=== PATIENT | female | born 1995 | race Caucasian/White ===

== ENCOUNTER 2017-04-22 23:39 | Emergency (ER) | payer BC ==
[~2017-04-22] VITALS: Ht 162.6 cm; Wt 95.3 kg
[~2017-04-22 23:39] MED LIST: FERROUS SULFAT325 M1 PO; MACROBID 100MG100 MG PO; MOTRIN400 MG PO; PERCOCET 5/3251 EACH PO; PRENATAL PLUS1 TA1 PO
[2017-04-23] MEDS ORDERED: NOMEDS XX (00:02)
--- OUTSIDE RECORDS SUMMARY | 2017-04-23 00:06 | External Medical Summary Rpt ---
Author Author , LUCA Padilla LUCA Address Unknown Phone [email or web address] Care Team Providers Care Store Clerk Checker Name Role Phone [facility], Unavailable Unavailable [facility] # Unavailable Unavailable [id number], [facility] # [id number] Purpose Continuity of Care Document - 04-01-2010 through 2016 Medications Na ND Rx Da Fi Fi Am Da Di Ph RX Ph St me C No te ll ll ou ys ag ar # ys at rm s nt no ma ic us Or Da si cy ia de te s n re d 00 06 10 11 28 28 WA 70 CL Ac 43 -2 -2 .0 L- 83 AR ti 00 7- 4- 00 MA 67 KE ve 53 20 20 RT 6 01 11 11 DE 4 PH RE AR K MA J CY # 10 04 93 00 06 09 11 28 28 WA 70 CL Ac 43 -2 -2 .0 L- 83 AR ti 00 7- 7- 00 MA 67 KE ve 53 20 20 RT 6 01 11 11 DE 4 PH RE AR K MA J CY # 10 04 93 AM 66 08 08 0 20 10 SO 38 TA Ac OX 68 -2 -2 .0 PE 21 MA ti -C 51 3- 3- 00 RS 29 RE ve LA 00 20 20 N V 10 11 11 FA JA 87 1 SC NE 5- LY T [address] MG UG TA BL ET 00 06 08 11 28 28 WA 70 CL Ac 43 -2 -2 .0 L- 83 AR ti 00 7- 2- 00 MA 67 KE ve 53 20 20 RT 6 01 11 11 DE 4 PH RE AR K MA J CY # 10 04 93 00 06 07 11 28 28 WA 70 CL Ac 43 -2 -2 .0 L- 83 AR ti 00 7- 7- 00 MA 67 KE ve 53 20 20 RT 6 01 11 11 DE 4 PH RE AR K MA J CY # 10 04 93 00 06 06 11 28 28 WA 70 CL Ac 43 -2 -2 .0 L- 83 AR ti 00 7- 7- 00 MA 67 KE ve 53 20 20 RT 6 01 11 11 DE 4 PH RE AR K MA J CY # 10 04 93 NI 00 05 05 0 14 7 SO 37 TA Ac TR 18 -1 -1 .0 PE 38 MA ti OF 50 8- 8- 00 RS 65 RE ve UR 12 20 20 N AN 21 11 11 FA JA TO 0 SC NE IN LY T MO DR NO UG -M CR 10 0 MG NA 68 05 05 1 60 30 SO 37 TA Ac MT 46 -1 -1 .0 PE 38 MA ti OX 20 8- 8- 00 RS 67 RE ve EN 19 20 20 N 00 11 11 FA JA 50 5 SC NE [address] TA UG BL ET 00 11 11 0 90 5 SO 35 TA Ac 12 -0 -0 0. PE 64 MA ti 10 3- 3- 00 RS 68 RE ve 65 20 20 0 N 51 10 10 FA JA 6 SC NE LY T DR UG LI 50 11 11 1 10 7 SO 35 TA Ac DO 38 -0 -0 0. PE 64 MA ti CA 30 3- 3- 00 RS 67 RE ve IN 77 20 20 0 N E 50 10 10 FA JA 2% 4 SC NE LY T SC DR OU UG S SO LN AM 00 11 11 0 30 10 SO 35 TA Ac OX 14 -0 -0 0. PE 64 MA ti IC 39 3- 3- 00 RS 66 RE ve IL 88 20 20 0 N LI 70 10 10 FA JA N 1 SC NE 40 LY T [address] /5 UG ML MONTANEZ SP MT 50 09 09 0 60 12 SO 35 TA Ac OM 38 -2 -2 .0 PE 24 MA ti ET 30 0- 0- 00 RS 40 RE ve GARCIA 80 20 20 N ZI 41 10 10 FA JA NE 6 SC NE -C LY T OD EI DR NE UG SY RU P AZ 00 09 09 0 6. 5 SO 35 TA Ac IT 78 -2 -2 00 PE 24 MA ti HR 11 0- 0- 0 RS 41 RE ve OM 49 20 20 N YC 66 10 10 FA JA IN 8 SC NE LY T [address] MG UG TA BL ET AM 00 09 09 0 20 10 SO 35 TA Ac OX 78 -1 -1 .0 PE 21 MA ti IC 15 6- 6- 00 RS 88 RE ve IL 06 20 20 N LI 10 10 10 FA JA N 1 SC NE 87 LY T [address] UG TA BL ET 00 07 07 0 12 5 SO 34 TA Ac 00 -0 -0 0. PE 65 MA ti 00 RS 42 RE ve 00 20 20 0 N 00 10 10 FA JA 0 SC NE LY T DR MORALES CE 68 07 07 0 10 5 SO 34 TA Ac PH 18 -0 -0 .0 PE 65 MA ti AL RS 43 RE ve EX 12 20 20 N IN 20 10 10 FA JA 2 SC NE [address] LY T [address] MORALES CA PS UL E
--- OUTSIDE RECORDS SUMMARY | 2017-04-23 00:06 | External Medical Summary Rpt ---
Author Author , LUCA Padilla LUCA Address Unknown Phone [email or web address] Care Team Providers Care Flat Spring Assembler Name Role Phone [facility], Unavailable Unavailable [facility] # Unavailable Unavailable [id number], [facility] # [id number] Purpose Continuity of Care Document - 04-01-2010 [...] 10 11 11 FA JA 87 1 GA NE 5- LY T [address] [...] 21 11 11 FA JA TO 0 GA NE IN LY T MO DR NO UG -M CR 10 0 MG NA 68 05 05 1 60 30 SO 37 TA Ac ID 46 -1 -1 .0 PE 38 MA ti OX 20 8- 8- 00 RS 67 RE ve EN 19 20 20 N 00 11 11 FA JA 50 5 GA NE [address] TA UG BL ET 00 11 11 0 90 5 SO 35 TA Ac 12 -0 -0 0. PE 64 MA ti 10 3- 3- 00 RS 68 RE ve 65 20 20 0 N 51 10 10 FA JA 6 GA NE LY T DR UG LI 50 11 11 1 10 7 SO 35 TA Ac DO 38 -0 -0 0. PE 64 MA ti CA 30 3- 3- 00 RS 67 RE ve IN 77 20 20 0 N E 50 10 10 FA JA 2% 4 GA NE LY T SC DR OU UG S SO LN AM 00 11 11 0 30 10 SO 35 TA Ac OX 14 -0 -0 0. PE 64 MA ti IC 39 3- 3- 00 RS 66 RE ve IL 88 20 20 0 N LI 70 10 10 FA JA N 1 GA NE 40 LY T [address] /5 UG ML MONTANEZ SP ID 50 09 09 0 60 12 SO 35 TA Ac OM 38 -2 -2 .0 PE 24 MA ti ET 30 0- 0- 00 RS 40 RE ve GARCIA 80 20 20 N ZI 41 10 10 FA JA NE 6 GA NE -C LY T OD EI DR NE UG SY RU P AZ 00 09 09 0 6. 5 SO 35 TA Ac IT 78 -2 -2 00 PE 24 MA ti HR 11 0- 0- 0 RS 41 RE ve OM 49 20 20 N YC 66 10 10 FA JA IN 8 GA NE LY T [address] MG UG TA BL ET AM 00 09 09 0 20 10 SO 35 TA Ac OX 78 -1 -1 .0 PE 21 MA ti IC 15 6- 6- 00 RS 88 RE ve IL 06 20 20 N LI 10 10 10 FA JA N 1 GA NE 87 LY T [address] UG TA BL ET 00 07 07 0 12 5 SO 34 TA Ac 00 -0 -0 0. PE 65 MA ti 00 RS 42 RE ve 00 20 20 0 N 00 10 10 FA JA 0 GA NE LY T DR MORALES CE 68 07 07 0 10 5 SO 34 TA Ac PH 18 -0 -0 .0 PE 65 MA ti AL RS 43 RE ve EX 12 20 20 N IN 20 10 10 FA JA 2 GA NE [address] LY T [address] MORALES CA PS UL E
--- OUTSIDE RECORDS SUMMARY | 2017-04-23 00:06 | External Medical Summary Rpt ---
Demographics Preferred Language Hong Konger Marital Status Unknown Yazidi Affiliation Unknown Race Unknown Ethnic Group Unknown Author Author , LUCA SEGOVIA Address Unknown Phone [email or web address] Care Team Providers Care Wind Project Manager Name Role Phone [facility], Unavailable Unavailable [facility] # Unavailable Unavailable [id number], [facility] # [id number] Purpose Continuity of Care Document - 04-01-2010 [...] 10 11 11 FA JA 87 1 MO NE 5- LY T [address] [...] 21 11 11 FA JA TO 0 MO NE IN LY T MO DR NO UG -M CR 10 0 MG NA 68 05 05 1 60 30 SO 37 TA Ac SD 46 -1 -1 .0 PE 38 MA ti OX 20 8- 8- 00 RS 67 RE ve EN 19 20 20 N 00 11 11 FA JA 50 5 MO NE [address] TA UG BL ET AM 00 11 11 0 30 10 SO 35 TA Ac OX 14 -0 -0 0. PE 64 MA ti IC 39 3- 3- 00 RS 66 RE ve IL 88 20 20 0 N LI 70 10 10 FA JA N 1 MO NE 40 LY T [address] /5 UG ML MONTANEZ SP LI 50 11 11 1 10 7 SO 35 TA Ac DO 38 -0 -0 0. PE 64 MA ti CA 30 3- 3- 00 RS 67 RE ve IN 77 20 20 0 N E 50 10 10 FA JA 2% 4 MO NE LY T SC DR OU UG S SO LN 00 11 11 0 90 5 SO 35 TA Ac 12 -0 -0 0. PE 64 MA ti 10 3- 3- 00 RS 68 RE ve 65 20 20 0 N 51 10 10 FA JA 6 MO NE LY T DR UG SD 50 09 09 0 60 12 SO 35 TA Ac OM 38 -2 -2 .0 PE 24 MA ti ET 30 0- 0- 00 RS 40 RE ve GARCIA 80 20 20 N ZI 41 10 10 FA JA NE 6 MO NE -C LY T OD EI DR NE UG SY RU P AZ 00 09 09 0 6. 5 SO 35 TA Ac IT 78 -2 -2 00 PE 24 MA ti HR 11 0- 0- 0 RS 41 RE ve OM 49 20 20 N YC 66 10 10 FA JA IN 8 MO NE LY T [address] MG UG TA BL ET AM 00 09 09 0 20 10 SO 35 TA Ac OX 78 -1 -1 .0 PE 21 MA ti IC 15 6- 6- 00 RS 88 RE ve IL 06 20 20 N LI 10 10 10 FA JA N 1 MO NE 87 LY T [address] UG TA BL ET 00 07 07 0 12 5 SO 34 TA Ac 00 -0 -0 0. PE 65 MA ti 00 7- 7- 00 RS 42 RE ve 00 20 20 0 N 00 10 10 FA JA 0 MO NE LY T DR CARMEN CE 68 07 07 0 10 5 SO 34 TA Ac PH 18 -0 -0 .0 PE 65 MA ti AL 00 RS 43 RE ve EX 12 20 20 N IN 20 10 10 FA JA 2 MO NE 50 LY T [address] MORALES CA PS UL E
--- OUTSIDE RECORDS SUMMARY | 2017-04-23 00:06 | External Medical Summary Rpt ---
Demographics Preferred Language Monegasque Marital Status Unknown Mu-Ism Affiliation Unknown Race Unknown Ethnic Group Unknown Author Author , LUCA SEGOVIA Address Unknown Phone Care Team Providers Care Product Safety Engineer Name Role Phone [facility], Unavailable Unavailable [facility] # Unavailable Unavailable [id number], [facility] # [id number] Purpose Continuity of Care Document - 04-01-2010 [...] 10 11 11 FA JA 87 1 KS NE 5- LY T [address] [...] 21 11 11 FA JA TO 0 KS NE IN LY T MO DR NO UG -M CR 10 0 MG NA 68 05 05 1 60 30 SO 37 TA Ac NM 46 -1 -1 .0 PE 38 MA ti OX 20 8- 8- 00 RS 67 RE ve EN 19 20 20 N 00 11 11 FA JA 50 5 KS NE [address] TA UG BL ET AM 00 11 11 0 30 10 SO 35 TA Ac OX 14 -0 -0 0. PE 64 MA ti IC 39 3- 3- 00 RS 66 RE ve IL 88 20 20 0 N LI 70 10 10 FA JA N 1 KS NE 40 LY T [address] /5 UG ML MONTANEZ SP LI 50 11 11 1 10 7 SO 35 TA Ac DO 38 -0 -0 0. PE 64 MA ti CA 30 3- 3- 00 RS 67 RE ve IN 77 20 20 0 N E 50 10 10 FA JA 2% 4 KS NE LY T SC DR OU UG S SO LN 00 11 11 0 90 5 SO 35 TA Ac 12 -0 -0 0. PE 64 MA ti 10 3- 3- 00 RS 68 RE ve 65 20 20 0 N 51 10 10 FA JA 6 KS NE LY T DR UG NM 50 09 09 0 60 12 SO 35 TA Ac OM 38 -2 -2 .0 PE 24 MA ti ET 30 0- 0- 00 RS 40 RE ve GARCIA 80 20 20 N ZI 41 10 10 FA JA NE 6 KS NE -C LY T OD EI DR NE UG SY RU P AZ 00 09 09 0 6. 5 SO 35 TA Ac IT 78 -2 -2 00 PE 24 MA ti HR 11 0- 0- 0 RS 41 RE ve OM 49 20 20 N YC 66 10 10 FA JA IN 8 KS NE LY T [address] MG UG TA BL ET AM 00 09 09 0 20 10 SO 35 TA Ac OX 78 -1 -1 .0 PE 21 MA ti IC 15 6- 6- 00 RS 88 RE ve IL 06 20 20 N LI 10 10 10 FA JA N 1 KS NE 87 LY T [address] UG TA BL ET 00 07 07 0 12 5 SO 34 TA Ac 00 -0 -0 0. PE 65 MA ti 00 7- 7- 00 RS 42 RE ve 00 20 20 0 N 00 10 10 FA JA 0 KS NE LY T DR CARMEN CE 68 07 07 0 10 5 SO 34 TA Ac PH 18 -0 -0 .0 PE 65 MA ti AL 00 RS 43 RE ve EX 12 20 20 N IN 20 10 10 FA JA 2 KS NE [address] LY T [address] MORALES CA PS UL E
--- OUTSIDE RECORDS SUMMARY | 2017-04-23 00:07 | External Medical Summary Rpt ---
Author Author LUCA Soto, [employer] Address Unknown Phone Unavailable
--- OUTSIDE RECORDS SUMMARY | 2017-04-23 00:07 | External Medical Summary Rpt ---
Demographics Preferred Language Swedish Marital Status Unknown Rastafari Affiliation Unknown Race Unknown Ethnic Group Unknown Author Author , LUCA SEGOVIA Address Unknown Phone Immunization Unable to retrieve immunization data due to connection failure with Immunization Registry. Please try again later.
--- OUTSIDE RECORDS SUMMARY | 2017-04-23 00:07 | External Medical Summary Rpt ---
Demographics Preferred Language Maltese Marital Status Unknown Episcopalian Affiliation Unknown Race Unknown Ethnic Group Unknown Author Author , LUCA SEGOVIA Address Unknown Phone Immunization Unable to retrieve immunization data due to connection failure with Immunization Registry. Please try again later.
--- NOTE | 2017-04-23 00:26 | Emergency Room Report ---
History of Present Illness Time Seen by MD Christianson Presenting Problem in Triage Pt arrived:Walked Presenting Problem:took a mis-step when walking down porch steps, right ankle popped 3 times and "gave out" causing patient to fall from a height of 1 porch step. 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 N Clinical Suspician of Infection? N Mental Status: 1 - Regular (Normal Baseline) Sepsis Risk:Low Sepsis Risk Have you (or family members/close friends) recently traveled outside the [place]? N If Yes, where/when: Have you had exposure to infectious disease within the past month? N TB? Other? Specify: Source patient, RN notes reviewed, family, old records Exam Limitations no limitations Comment pt with acute rt ankle injury tonight - pt with sts and pain with wt bearing Cardiac Chest Pain Chest pain indicative of cardiac No Timing/Duration this evening Severity moderate ALLERGIES Coded Allergies: No Known Drug Allergies (NKDA) (04/23/17) Home Medications Active Scripts Ferrous Sulfate (Ferrous Sulfate 325MG) 325 MG PO BID #60 Prov: 10/06/12 Ibuprofen (Motrin) 400 MG PO Q4HP #40 TAB Prov: 10/06/12 Oxycodone 5MG/[id number] (Oxycodone-Acetaminophen 5-325) 1-2 TAB PO Q4HP #30 TAB Prov: 10/06/12 Reported Medications No Home Medications (NO HOME MEDICATIONS) 1 EACH XX ONCE MULTIVIT-MIN W/FE-FA ( Multivitamin Tablet) 1 TAB PO DAILY History Medical History General Angina: No DE: No Hypertension? Yes Hyperlipidemia? No CHF? No COPD? No Asthma? No CVA? No Seizures? No Diabetes? No End Stage Renal Disease? No GB Disease: No Nephritic Syndrome? No Asplenia? No Sickle Cell Disease? No MRSA? No TB? No Cancer? 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 Respiratory denies cough, denies shortness of breath, denies wheezing Cardiovascular denies chest pain, denies palpitations, denies syncope Gastrointestinal denies abdominal pain, denies diarrhea, denies vomiting Genitourinary denies: dysuria, frequency, hesitancy, hematuria. Musculoskeletal see HPI, denies back pain, joint pain, joint swelling, denies neck pain Skin denies rash Psychiatric/Neurological denies headache, denies seizure Physical Exam Vital Signs Vital Signs Date Time Temp Pulse Resp B/P Pulse O2 O2 Flow FiO2 Ox Delivery Rate 04/22 2350 98.4 75 16 143/85 100 - WBC >12,000 or <4,000 or 10% bands? 2 or more SIRS Criteria Met? B/P:143/85 MAP:104 Creatinine >2.0? UA output<0.5ml/kg/hr for 2 hrs? Platelet count >100,000? Lactate >2.0mmol/1? INR >1.2 or PTT > than 60 sec? Evidence of Organ Dysfunction? Provider documented clinical suspician of infection? N Sepsis Criteria Count: 0 Sepsis Risk: Low Sepsis Risk General Appearance no apparent distress Eye Exam - bilateral eye PERRL, bilateral eye EOMI Ear, Nose, Throat normal ENT inspection Neck supple Respiratory Status No: respiratory distress. Cardiovascular regular rate/rhythm Peripheral Pulses Pulses normal Yes Gastrointestinal soft Extremities no pedal edema, swelling, tender rt ankle with achilles ok , calcaneous ok Strength 4 Upper Ext (L), 4 Upper Ext (R), 4 Lower Ext (L), 4 Lower Ext (R) Neurologic alert, pricing manager II-XII nml as tested, no motor/sensory deficits Reflexes Reflexes normal No Mental status normal mood/affect Skin intact Medical Decision Making LABS/Meds/Orders Pt receiving controlled substance in ED? No Results/Orders Current Medication Orders Sig/Arielle Start time Last Medication Dose Route Stop Time Status Admin Ibuprofen 0 .STK-MED ONE 04/23 0005 DC PO Ibuprofen 600 MG ONCE ONE 04/22 2345 DC 04/23 PO 04/22 2346 0007 Orders Procedure Date/time Status ANKLE-RT-3 VIEWS 04/23 6013 Active XRAY/CT/US XRAY/CT/US XRAY ankle XR interpretation by reviewed by me Xray Results abnormal (talar injury) Procedures Orthopedic/Inj/Splint Ortho Proc/Injections/Splints Risks/benefits discussed with pt/guardian? Yes IV conscious sedation No Post reduction xrays completed and anatomic No Hand-Made Type orthoglass Splint posterior walking Pre-Proc Neuro Vasc Exam normal Post-Proc Neuro Vasc Exam unchanged from pre-exam Complications none Departure Departure Time of Disposition 0056 Disposition DC Home or Self Care(routine) Clinical Impression Primary Impression: Talar dome fracture Qualifiers: Encounter type: initial encounter Fracture type: closed Fracture alignment: nondisplaced Laterality: right Qualified Code: S92.144A - Nondisplaced dome fracture of right talus, initial encounter for closed fracture Condition STABLE Referrals SAMMI PEACOCK DPM Patient Instructions DI for Talus Fracture Additional Instructions limited wt bearing and see podiatry for follow up Discharge Counseling Counseled pt/family regarding diagnosis, test results, medications/RX, follow up needs ED Critical Care Critical Care No at 0105
--- NOTE | 2017-04-23 00:26 | Emergency Room Report ---
History of Present Illness Time Seen by MD Christianson Presenting Problem in Triage Pt arrived:Walked Presenting Problem:took a mis-step when walking down porch steps, right ankle popped 3 times and "gave out" causing patient to fall from a height of 1 porch step. 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 N Clinical Suspician of Infection? N Mental Status: 1 - Regular (Normal Baseline) Sepsis Risk:Low Sepsis Risk Have you (or family members/close friends) recently traveled outside the [place]? N If Yes, where/when: Have you had exposure to infectious disease within the past month? N TB? Other? Specify: Source patient, RN notes reviewed, family, old records Exam Limitations no limitations Comment pt with acute rt ankle injury tonight - pt with sts and pain with wt bearing Cardiac Chest Pain Chest pain indicative of cardiac No Timing/Duration this evening Severity moderate ALLERGIES Coded Allergies: No Known Drug Allergies (NKDA) (04/23/17) Home Medications Active Scripts Ferrous Sulfate (Ferrous Sulfate 325MG) 325 MG PO BID #60 Prov: 10/06/12 Ibuprofen (Motrin) 400 MG PO Q4HP #40 TAB Prov: 10/06/12 Oxycodone 5MG/[id number] (Oxycodone-Acetaminophen 5-325) 1-2 TAB PO Q4HP #30 TAB Prov: 10/06/12 Reported Medications No Home Medications (NO HOME MEDICATIONS) 1 EACH XX ONCE MULTIVIT-MIN W/FE-FA ( Multivitamin Tablet) 1 TAB PO DAILY History Medical History General Angina: No SC: No Hypertension? Yes Hyperlipidemia? No CHF? No COPD? No Asthma? No CVA? No Seizures? No Diabetes? No End Stage Renal Disease? No GB Disease: No Nephritic Syndrome? No Asplenia? No Sickle Cell Disease? No MRSA? No TB? No Cancer? 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 Respiratory denies cough, denies shortness of breath, denies wheezing Cardiovascular denies chest pain, denies palpitations, denies syncope Gastrointestinal denies abdominal pain, denies diarrhea, denies vomiting Genitourinary denies: dysuria, frequency, hesitancy, hematuria. Musculoskeletal see HPI, denies back pain, joint pain, joint swelling, denies neck pain Skin denies rash Psychiatric/Neurological denies headache, denies seizure Physical Exam Vital Signs Vital Signs Date Time Temp Pulse Resp B/P Pulse O2 O2 Flow FiO2 Ox Delivery Rate 04/22 2350 98.4 75 16 143/85 100 - WBC >12,000 or <4,000 or 10% bands? 2 or more SIRS Criteria Met? B/P:143/85 MAP:104 Creatinine >2.0? UA output<0.5ml/kg/hr for 2 hrs? Platelet count >100,000? Lactate >2.0mmol/1? INR >1.2 or PTT > than 60 sec? Evidence of Organ Dysfunction? Provider documented clinical suspician of infection? N Sepsis Criteria Count: 0 Sepsis Risk: Low Sepsis Risk General Appearance no apparent distress Eye Exam - bilateral eye PERRL, bilateral eye EOMI Ear, Nose, Throat normal ENT inspection Neck supple Respiratory Status No: respiratory distress. Cardiovascular regular rate/rhythm Peripheral Pulses Pulses normal Yes Gastrointestinal soft Extremities no pedal edema, swelling, tender rt ankle with achilles ok , calcaneous ok Strength 4 Upper Ext (L), 4 Upper Ext (R), 4 Lower Ext (L), 4 Lower Ext (R) Neurologic alert, donor services coordinator II-XII nml as tested, no motor/sensory deficits Reflexes Reflexes normal No Mental status normal mood/affect Skin intact Medical Decision Making LABS/Meds/Orders Pt receiving controlled substance in ED? No Results/Orders Current Medication Orders Sig/Arielle Start time Last Medication Dose Route Stop Time Status Admin Ibuprofen 0 .STK-MED ONE 04/23 0005 DC PO Ibuprofen 600 MG ONCE ONE 04/22 2345 DC 04/23 PO 04/22 2346 0007 Orders Procedure Date/time Status ANKLE-RT-3 VIEWS 04/23 8695 Active XRAY/CT/US XRAY/CT/US XRAY ankle XR interpretation by reviewed by me Xray Results abnormal (talar injury) Procedures Orthopedic/Inj/Splint Ortho Proc/Injections/Splints Risks/benefits discussed with pt/guardian? Yes IV conscious sedation No Post reduction xrays completed and anatomic No Hand-Made Type orthoglass Splint posterior walking Pre-Proc Neuro Vasc Exam normal Post-Proc Neuro Vasc Exam unchanged from pre-exam Complications none Departure Departure Time of Disposition 0056 Disposition DC Home or Self Care(routine) Clinical Impression Primary Impression: Talar dome fracture Qualifiers: Encounter type: initial encounter Fracture type: closed Fracture alignment: nondisplaced Laterality: right Qualified Code: S92.144A - Nondisplaced dome fracture of right talus, initial encounter for closed fracture Condition STABLE Referrals SAMMI PEACOCK DPM Patient Instructions DI for Talus Fracture Additional Instructions limited wt bearing and see podiatry for follow up Discharge Counseling Counseled pt/family regarding diagnosis, test results, medications/RX, follow up needs ED Critical Care Critical Care No at 0105
[2017-04-23 01:13] VITALS: BP 124/84
--- NOTE | 2017-04-23 08:02 | RADIOLOGY REPORT PS360 ---
ANKLE-RT-3 VIEWS COMPARISON: None HISTORY: Right ankle pain after falling down steps TECHNIQUE: AP lateral and oblique views FINDINGS: There is mild diffuse soft tissue swelling both medially and laterally. The medial and lateral malleolus appear intact iliac mortise is normal. There is a small spur of the calcaneus at insertion of plantar tendon. IMPRESSION: Negative for fracture
== END 2017-04-23 01:21 | disposition home or self-care (01) ==
LOC: ER 23:39
PROC: 2W3QX1Z Immobilization of Right Lower Leg using Splint (ICD-10-PCS; principal; 2017-04-22)
DX: S92.144A Nondisplaced dome fracture of right talus, initial encounter for closed fracture (principal); W10.9XXA Fall (on) (from) unspecified stairs and steps, initial encounter